=== PATIENT | male | born 1955 | race African-American/Black ===

== ENCOUNTER → 2022-12-16 | Day surgery (SDC) | payer MEDICARE, MEDICAID ==
[~2022-12-16] VITALS: Ht 182.9 cm; Wt 111.1 kg
[~2022-12-16] MED LIST: ACETAMINOPHEN 325MG TABLET PO PRN; AMLO10TA80 PO; AMLO5TAB88 PO; ATOR40TA70 PO; BRIM15DR8 EACHEYE; BUPIVACAINE HCL/PF 0.5% (5MG/ML) 10ML ONE; CEFAZOLIN SODIUM 1000MG/VIAL ONE; DEXAMETHASONE 4MG/ML 1ML VIAL ONE; FENTANYL CITRATE/PF 50MCG/ML 2ML VIAL IV NR; FENTANYL CITRATE/PF 50MCG/ML 2ML VIAL ONE; FURO20TA4 PO; HYDROCODONE/ACETAMINOPHEN 5/325MG TABLET PO NR; HYDROCODONE/ACETAMINOPHEN 5/325MG TABLET PO PRN; LACTATED RINGERS 1,000 ML IV SCH; LIDOCAINE HCL 1% 10 MG/ML 10ML VIAL ONE; MORPHINE SULFATE 2 MG/ML CPJ (NOT FOR IM USE) IV PRN; MORPHINE SULFATE 4 MG/ML CPJ (NOT FOR IM USE) IV PRN; OMEP40CA20 PO; ONDANSETRON HCL 4MG/2ML INJ IV PRN; ONDANSETRON HCL 4MG/2ML INJ ONE; PHENYLEPHRINE HCL 10 MG/ML 1ML (IV VIAL) IV ONE; PROPOFOL 200MG/20ML VIAL IV ONE; ROSU5TAB PO
== END | disposition home or self-care (01) ==
LOC: OR 05:23
PROVIDERS: ATTEND Surgery
DX: D23.4 Other benign neoplasm of skin of scalp and neck (principal); I10 Essential (primary) hypertension; E78.00 Pure hypercholesterolemia, unspecified; K21.9 Gastro-esophageal reflux disease without esophagitis; Z79.899 Other long term (current) drug therapy; Z98.890 Other specified postprocedural states
CPT/HCPCS: 88305; 21012; J3010; J3490 ×2; J0690; J1100; J2405; J2370; J2704; A4217; Z7610 ×17; J2270